=== PATIENT | female | born 1985 | race Two or more races ===

== ENCOUNTER 2019-01-17 06:36 | Inpatient (IN) | payer OTHER ==
[~2019-01-17] VITALS: Ht 165.1 cm; Wt 74.8 kg
[2019-01-17 07:02] VITALS: BP 116/81
[2019-01-17] MEDS ORDERED: RINGERS SOLUTION,LACTATED 1,000 ML IV SCH (07:37)
[2019-01-17] MEDS ORDERED: FentaNYL CITRATE-PF 100 MCG/2 ML VIAL IVP PRN (07:45)
[2019-01-17] MEDS ORDERED: CITRIC ACID/SODIUM CITRATE 30 ML SOLUTION UDCUP PO PRN (07:45)
[2019-01-17] MEDS ORDERED: METOCLOPRAMIDE HCL 5 MG/ML 2 ML VIAL IVP PRN (07:45)
[2019-01-17] MEDS ORDERED: OXYGEN THERAPY IH SCH (08:00)
[2019-01-17 08:25] LABS: BASOPHILS % (AUTO) 1.2 % (0.0-2.0); EOSINOPHILS % (AUTO) 0.5 % (1.0-6.0); HEMATOCRIT 36.1 % (36-46); HEMOGLOBIN 12.2 g/dL (12.0-16.0); LYMPHOCYTES # (AUTO) 1.2 K/uL (1.0-4.8); MEAN CORPUSCULAR HEMOGLOBIN 28.8 pg (26.0-34.0); MEAN CORPUSCULAR HGB CONC 33.7 G/dL (31.0-37.0); MEAN CORPUSCULAR VOLUME 85 fL (80-100); MONOCYTES # (AUTO) 0.5 K/uL (0.1-1.0); MONOCYTES % (AUTO) 7.1 % (2.0-9.0); NEUTROPHILS # (AUTO) 5.4 K/uL (1.8-7.7); NEUTROPHILS % (AUTO) 75.2 % (40.0-70.0); PLATELET COUNT (AUTO)-OB 274 K/uL (150-450); RED BLOOD CELL COUNT(AUTO) 4.23 MIL/uL (4.00-5.20)
[2019-01-17] MEDS ORDERED: OXYTOCIN 30 UNITS/LACT RINGERS 500 ML IV PRN (08:45)
[2019-01-17] MEDS: RINGERS SOLUTION,LACTATED 1,000 ML IV PRN ×2 (08:45→11:47)
[2019-01-17] MEDS ORDERED: INFLUENZA VIRUS VACCINE QVS 2019-20 (3YR+)/PF 60 MCG/0.5 ML SYRINGE IM ONE (09:15)
[2019-01-17] MEDS ORDERED: ROPIVACAINE HCL/PF 0.2% 100 ML ED ONE (10:53)
[2019-01-17] MEDS ORDERED: LIDOCAINE/PF 2% 5 ML VIAL ONE (10:53)
[2019-01-17] MEDS ORDERED: ROPIVACAINE HCL/PF 0.2% 100 ML ED PRN (16:30)
[2019-01-17] MEDS ORDERED: NALBUPHINE HCL 10 MG/ML VIAL IVP PRN (16:30)
[2019-01-17] MEDS ORDERED: DiphenhydrAMINE HCL 50 MG/ML VIAL IVP PRN (16:30)
[2019-01-17] MEDS ORDERED: ONDANSETRON HCL 4 MG/2 ML VIAL IVP PRN (16:30)
[2019-01-17] MEDS ORDERED: LIDOCAINE/PF 1% 30 ML VIAL ONE (18:24)
[2019-01-17] MEDS ORDERED: LIDOCAINE/PF 1% 30 ML VIAL INJ ONE (18:30)
[2019-01-17] MEDS ORDERED: MINERAL OIL 30 ML UDCUP VG ONE (18:30)
[2019-01-17] MEDS ORDERED: GLYCERIN/WITCH HAZEL LEAF 40 PADS JAR TP PRN (22:00)
[2019-01-17] MEDS ORDERED: OxyCODONE HCL/ACETAMINOPHEN 5-325 MG TABLET PO PRN ×2 (22:00)
[2019-01-17] MEDS ORDERED: LANOLIN 7 GM OINTMENT TP PRN (22:00)
[2019-01-17] MEDS ORDERED: BENZOCAINE 20%/MENTHOL 56 GM SPRAY CANISTER TP PRN (22:00)
[2019-01-17] MEDS ORDERED: MAGNESIUM HYDROXIDE SUSPENSION 30 ML UDCUP PO PRN (22:00)
[2019-01-17] MEDS ORDERED: IBUPROFEN 800 MG TABLET PO PRN (22:00)
[2019-01-18 05:45] LABS: BASOPHILS % (AUTO) 0.3 % (0.0-2.0); EOSINOPHILS % (AUTO) 0.2 % (1.0-6.0); HEMATOCRIT 31.4 % (36-46); HEMOGLOBIN 10.8 g/dL (12.0-16.0); LYMPHOCYTES # (AUTO) 1.5 K/uL (1.0-4.8); LYMPHOCYTES % (AUTO) 14.6 % (22.0-44.0); MEAN CORPUSCULAR HEMOGLOBIN 29.2 pg (26.0-34.0); MEAN CORPUSCULAR HGB CONC 34.2 G/dL (31.0-37.0); MEAN CORPUSCULAR VOLUME 85 fL (80-100); MONOCYTES # (AUTO) 0.7 K/uL (0.1-1.0); MONOCYTES % (AUTO) 7.1 % (2.0-9.0); NEUTROPHILS % (AUTO) 77.8 % (40.0-70.0); PLATELET COUNT (AUTO)-OB 234 K/uL (150-450); RED BLOOD CELL COUNT(AUTO) 3.69 MIL/uL (4.00-5.20)
[2019-01-18] MEDS ORDERED: DOCU-275 PO (09:56)
[2019-01-18] MEDS ORDERED: IBUP-2071 PO (09:56)
[2019-01-18] MEDS ORDERED: FERR-89 PO (09:57)
== END 2019-01-18 19:05 | disposition home or self-care (01) | DRG 807 ==
LOC: 4S 06:36 → PREOBSVTOIN 02-11 06:40
PROVIDERS: ADMIT Obstetrics & Gynecology; ATTEND Obstetrics & Gynecology
PROC: 10907ZC Drainage of Amniotic Fluid, Therapeutic from Products of Conception, Via Natural or Artificial Opening (ICD-10-PCS; principal; 2019-01-17)
PROC: 10D07Z6 Extraction of Products of Conception, Vacuum, Via Natural or Artificial Opening (ICD-10-PCS; 2019-01-17)
PROC: 0HQ9XZZ Repair Perineum Skin, External Approach (ICD-10-PCS; 2019-01-17)
PROC: 3E0R3BZ Introduction of Anesthetic Agent into Spinal Canal, Percutaneous Approach (ICD-10-PCS; 2019-01-17)
PROC: 00HU33Z Insertion of Infusion Device into Spinal Canal, Percutaneous Approach (ICD-10-PCS; 2019-01-17)
DX: O69.81X0 Labor and delivery complicated by cord around neck, without compression, not applicable or unspecified (principal); Z37.0 Single live birth; O70.0 First degree perineal laceration during delivery; O66.5 Attempted application of vacuum extractor and forceps; Z3A.39 39 weeks gestation of pregnancy
CPT/HCPCS: 86850; 86900; 86901; J2590; J2795; J3490; J7120